=== PATIENT | female | born 1985 | race Caucasian/White ===

== ENCOUNTER → 2024-05-07 | Outpatient (CLI) | payer OTHER ==
[~2024-05-07] MED LIST: DHA; DHA PO; FERATE27 MG PO; PRENATAL VITAMI1 TAB PO; PRENATAL1 TA1 PO; SLOW FE45 MG PO; TUMS500 MG PO
== END ==
LOC: MC.RAD 08:28
DX: Z12.31 Encounter for screening mammogram for malignant neoplasm of breast (principal); N64.89 Other specified disorders of breast